=== PATIENT | male | born 1985 | race Caucasian/White ===

== ENCOUNTER 2021-02-26 19:28 | Emergency (ER) | payer OTHER ==
[~2021-02-26] VITALS: Ht 190.5 cm; Wt 113.4 kg
[2021-02-26] MEDS ORDERED: OMEPRAZOLE5 GM (19:38)
[2021-02-26 21:51] LABS: ABSOLUTE LYMPHOCYTES 1.3 thou/uL (0.8-5.3); EOSINOPHILS 0.5 %; RBC 5.03 mil/uL (4.50-6.00)
[2021-02-26 21:53] LABS: ABSOLUTE MONOCYTES 0.5 thou/uL (0.0-1.2); ABSOLUTE NEUTROPHILS 4.4 thou/uL (1.6-8.1); BASOPHILS 0.2 %; HEMATOCRIT 44.1 % (42.0-52.0); LYMPHOCYTES 20.5 %; MCH 29.9 pg (26.0-34.0); MCHC 34.1 g/dL (28.0-37.0); MCV 87.7 fL (80.0-100.0); MONOCYTES 8.2 %; MPV 8.4 fl. (7.2-11.1); NUCLEATED RBCS 0 /100WBC; PLATELET COUNT* 195 thou/uL (150-400); POLYS 70.6 %; RDW-CV 13.8 % (10.5-14.5); WBC 6.2 thou/uL (4.0-11.0)
[2021-02-26 21:57] LABS: CALCIUM 8.6 mg/dL (8.5-10.1); CREATININE 1.1 mg/dL (0.6-1.3); POTASSIUM 3.7 mmol/L (3.5-5.1)
[2021-02-26 22:02] LABS: ALBUMIN 3.8 g/dL (3.4-5.0); TOTAL BILIRUBIN 0.4 mg/dL (<0.1-1.0); TOTAL PROTEIN 6.9 g/dL (6.4-8.2)
[2021-02-26 22:28] VITALS: BP 112/54
--- NOTE | 2021-02-28 15:11 | EKG ---
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1985 Requested By: Carli Cooper Order Number: [id number] MD: Christian Mcqueen Measurements Intervals [place] Rate: 108 P: 109 ME: 161 QRS: 259 QRSD: 123 T: 18 QT: 378 QTc: 507 Interpretive Statements Sinus tachycardia Nonspecific IVCD with LAD Anteroseptal infarct, old, possible Repol abnrm, severe global ischemia (LM/MVD) No previous ECG available for comparison Electronically Signed On 02-28-2021 15:11:35 [employer] TE[employer] by Christian Mcqueen [email or web address] <ELECTRONICALLY SIGNED> By: Christian Mcqueen MD, FACC 02/28/21 151 30 30 Christian Mcqueen MD, FAC /EPI
== END 2021-02-26 22:28 | disposition home or self-care (01) ==
LOC: M.ERS 19:28
PROVIDERS: Physician Assistant
DX: R00.2 Palpitations (principal); K21.9 Gastro-esophageal reflux disease without esophagitis; Z79.899 Other long term (current) drug therapy